=== PATIENT | male | born 1955 | race Caucasian/White ===

== ENCOUNTER 2017-04-29 09:46 | Observation (INO) | payer BC ==
--- NOTE | ~2017-04-29 | HP ---
History And Physical [id number] [place]. [address] NAME: MAY DSOUZA : 51 STATUS : DIS Phong PAT#: [id number] AGE: 61 ADM/REG DATE : 04/29/17 MR#: [id number] REPORT SERV DATE: 04/30/17 DICTATED BY: Cookie ISBELL DATE: 04/30/17 REPORT STATUS : Draft TRANSCRIBED BY: MODL DATE: 04/30/17 DATE OF ADMISSION: 04/29/2017 CHIEF COMPLAINT: Right proximal ureteral stone with intractable pain. HISTORY OF PRESENT ILLNESS: Mr. Dsouza is a 61-year-old white male with a history of stone disease, not last seen by me in several years, who presented to the emergency room with severe right flank pain for several days. A CT scan showed a 6 mm right proximal ureteral stone as well as an indeterminate but suspicious right renal mass. He was admitted for pain control. No evidence of fever or chills. He had some nausea but no vomiting. He was hypertensive at 150/89 but afebrile. PAST MEDICAL HISTORY: Hypertension, type 2 diabetes, urolithiasis, and hypercholesterolemia. PAST SURGICAL HISTORY: Previous ESWL in the indeterminate past. HOME MEDICATIONS: Daily aspirin, glimepiride 1 mg, hydrocodone acetaminophen 10/325, Avapro 300 mg daily, Zocor 20 mg daily, and Janumet 100/1000 daily. ALLERGIES: NO KNOWN DRUG ALLERGIES. FAMILY HISTORY: Negative for urologic disease. SOCIAL HISTORY: The patient denies use of alcohol, tobacco, or drugs. He lives at home with his . REVIEW OF SYSTEMS: Full 12-point review of systems is negative except as noted above. PHYSICAL EXAMINATION: CONSTITUTIONAL: The patient appears uncomfortable, afebrile with normal vital signs. HEENT EXAM: Normocephalic, atraumatic. RESPIRATORY EXAM: No respiratory distress. CV: Exam shows regular heart rhythm. No peripheral edema noted. GI: Abdominal exam, no tenderness or masses noted. EXAM: No evidence of CVA tenderness. MUSCULOSKELETAL: The patient is ambulatory. NEUROLOGIC EXAM: Shows no evidence of neurologic deficits. The patient is alert and oriented x3. PERTINENT LABORATORY: Creatinine 1.18, hemoglobin 14.6. White count 12,700. Urinalysis shows 77 red cells, 2 white cells, and rare bacteria; leukocyte esterase and nitrite negative. IMPRESSION: 1. History of urolithiasis. 2. 6 mm right proximal ureteral stone with intractable pain. History And Physical [address] [address] NAME: MAY DSOUZA : 51 STATUS : DIS Phong PAT#: [id number] AGE: 61 ADM/REG DATE : 04/29/17 MR#: [id number] REPORT SERV DATE: 04/30/17 DICTATED BY: Cookie ISBELL DATE: 04/30/17 REPORT STATUS : Draft TRANSCRIBED BY: HESHAM DATE: 04/30/17 3. Indeterminate right renal mass, suspicious. PLAN: 1. We will admit Mr. Dsouza for pain control. We will plan to keep him n.p.o. after midnight and proceed with stent placement tomorrow. Certainly he is not a candidate for ESWL in this shape plus the fact that he has been on aspirin, and I would be wary of proceeding with ureteroscopy while he is on his aspirin for this proximal stone. 2. We will get a [address] at some point and proceed with appropriate management of his renal mass, probably it is best to get rid of the stone before intervention is considered. All of this has been discussed with the patient who has no unanswered questions. We will plan to proceed with stent placement on 04/30/2017. DEAN/HESHMA Cookie Isbell M.D. / [id number] CC: Radha Raymundo M.D.
--- NOTE | ~2017-04-29 | OP ---
Record Of Operation [facility] [address] [place]. [address] NAME: MAY DSOUZA : 51 STATUS : DIS Phong PAT#: [id number] AGE: 61 ADM/REG DATE : 04/29/17 MR#: [id number] REPORT SERV DATE: 04/30/17 DICTATED BY: Cookie ISBELL DATE: 04/30/17 REPORT STATUS : Draft TRANSCRIBED BY: MODL DATE: 04/30/17 DATE OF PROCEDURE: 04/30/2017 PREOPERATIVE DIAGNOSIS: Right proximal ureteral stone, 6 mm with intractable pain. POSTOPERATIVE DIAGNOSIS: Right proximal ureteral stone, 6 mm with intractable pain. PROCEDURE: Cystoscopy, right retrograde pyelography, stone manipulation, and double-J stent placement. ANESTHESIA: General with LMA. COMPLICATIONS: None. DRAINS: 7-Bolivian x 24 cm Contour double-J stent. BRIEF HISTORY: Mr. Dsouza is a 61-year-old white male, admitted with intractable right flank pain. He had a 6 mm proximal stone. He has a history of urolithiasis. It was also noted on the scan that he had a mass in his right kidney. He was brought to the OR for stent placement and delayed stone therapy. The risks of bleeding, infection, anesthesia, injury to adjacent organs, inability to access stone, need for additional procedures were all discussed. There were no unanswered questions. DESCRIPTION OF PROCEDURE: Under excellent general anesthesia, the patient was prepped and draped in standard lithotomy position. Cystoscopy was performed with the 30-degree lens, revealed a normal anterior urethra. The posterior urethra showed some lateral lobe BPH with a slightly enlarged median lobe. Inspection of the bladder revealed no tumors, stones, or foreign bodies with normal orifices. An 8-Bolivian cone-tipped catheter was used to perform a right retrograde pyelogram. It showed a normal contour ureter until his proximal ureter filling defect consistent with known stone was noted. Proximal to that, there was ureteral pyelocaliectasis. Placed an angled glidewire through a 5-Bolivian open-ended catheter past the stone into the collecting system. I then placed a 7-Bolivian x 24 cm Contour double-J stent which coiled nicely in the renal pelvis and bladder. It appeared that the stone moved proximally during this procedure. I plan to send the patient to PACU with further instructions as below: DISCHARGE INSTRUCTIONS: 1. Home today if awakens from anesthesia. 2. We will plan a 4-phase CT and KUB as an outpatient with plans to follow up after with me to discuss his renal mass and his stone. We will consider ESWL versus endoscopy for further stone management. 3. Medications: Dilaudid 4 mg, 1 p.o. q.4 hours p.r.n. pain, #20 and Pyridium 200 mg one p.o. t.i.d. p.r.n. bladder pain, #15 with three refills. Record Of Operation [facility] [id number] [facility] [place]. [address] NAME: MAY DSOUZA : 51 STATUS : DIS Phong PAT#: [id number] AGE: 61 ADM/REG DATE : 04/29/17 MR#: [id number] REPORT SERV DATE: 04/30/17 DICTATED BY: Cookie ISBELL DATE: 04/30/17 REPORT STATUS : Draft TRANSCRIBED BY: HESHAM DATE: 04/30/17 DEAN/HESHAM Cookie Isbell M.D. / [id number] CC: Radha Raymundo M.D.
[2017-04-29 09:42] LABS: BASOPHILS 0.1 %; BASOPHILS ABSOLUTE 0.01 10/3/uL (0.0-0.16); EOSINOPHILS 0.4 %; EOSINOPHILS ABSOLUTE 0.05 10/3/uL (0.0-0.53); HEMATOCRIT 44.1 % (40.0-51.0); HEMOGLOBIN 14.6 g/dL (13.6-17.8); IMMATURE GRANULOCYTES 0.2 %; IMMATURE GRANULOCYTES ABSOLUTE 0.02 10/3/uL (0.0-0.11); LYMPHOCYTES 7.9 %; MANUAL DIFF NO %; MEAN CORPUS HGB CONC 33.1 g/dL (32.0-36.0); MEAN CORPUSCULAR HEMOGLOB 29.9 pg (26.0-34.0); MEAN CORPUSCULAR VOLUME 90.2 fL (80-100); MEAN PLATELET VOLUME 10.5 fL (9.2-13.0); MONOCYTES 10.6 %; MONOCYTES ABSOLUTE 1.35 10/3/uL (0.21-1.20); NEUTROPHILS 80.8 %; NEUTROPHILS ABSOLUTE 10.28 10/3/uL (2.02-8.40); PLATELET COUNT 270 10/3/uL (150-400); RBC DISTRIBUTION WIDTH 14.4 % (12.0-16.0); RED CELL COUNT 4.89 10/6/uL (4.7-6.1); WHITE BLOOD CELLS 12.7 10/3/uL (4.5-10.5)
[2017-04-29 10:02] LABS: BUN (BLOOD UREA NITROGEN) 13 MG/DL (6-23); CALCIUM, SERUM 8.9 MG/DL (8.5-10.4); CHLORIDE, SERUM 106 MMOL/L (96-112); CO2 (CARBON DIOXIDE) 25 MMOL/L (24-34); CREATININE 1.18 MG/DL (0.70-1.30); GFR AFRICAN AMERICAN 76 ML/MIN (>=60); GFR NON AFRICAN AMERICAN 65 ML/MIN (>=60); GLUCOSE, SERUM 160 MG/DL (60-99); POTASSIUM, SERUM 3.7 MMOL/L (3.5-5.3); SODIUM, SERUM 138 MMOL/L (135-148)
[2017-04-29 10:55] LABS: ASCORBIC ACID (UR NOT ORDER) NEG (NEG); BILIRUBIN, URINE NEGATIVE (NEG); ER URINALYSIS TAT 0 Hrs 11 Mins; KETONE, URINE TRACE MG/DL (NEG); LEUKOCYTE ESTERASE(NOT OR NEG (NEG); NITRITE (URINE) NEG (NEG); WBC (NOT ORDERED) (RFLEX) 2 (0-5)
[2017-04-29] MEDS ORDERED: NORCO1 TAB PO (11:14)
[2017-04-29] MEDS ORDERED: AMARYL1 MG PO (11:15)
[2017-04-29] MEDS ORDERED: JANUMET XR 1001 EACH PO (11:15)
[2017-04-29] MEDS ORDERED: ASAB PO (11:15)
[2017-04-29] MEDS ORDERED: ZOCOR20 PO (11:15)
[2017-04-29] MEDS ORDERED: AVAPRO300 MG PO (11:20)
[2017-04-30] MEDS ORDERED: PYR200 PO (18:00)
[2017-04-30] MEDS ORDERED: DIL4TAB PO (18:01)
[2017-06-12] MEDS ORDERED: BENICAR HCT1 TA1 PO (11:42)
[2017-06-18] MEDS ORDERED: PCET PO (07:33)
[2017-06-18] MEDS ORDERED: DSS PO (07:33)
== END 2017-04-30 18:49 | disposition home or self-care (01) ==
LOC: ER 09:46 → 6NO 14:10
PROVIDERS: Physician Assistant
PROC: BT1DZZZ Fluoroscopy of Right Kidney, Ureter and Bladder (ICD-10-PCS; 2017-04-30)
PROC: 0T768DZ Dilation of Right Ureter with Intraluminal Device, Via Natural or Artificial Opening Endoscopic (ICD-10-PCS; principal; 2017-04-30 13:30)
DX: N13.2 Hydronephrosis with renal and ureteral calculous obstruction (principal); N40.0 Benign prostatic hyperplasia without lower urinary tract symptoms; I10 Essential (primary) hypertension; E11.9 Type 2 diabetes mellitus without complications; E78.00 Pure hypercholesterolemia, unspecified; Z79.82 Long term (current) use of aspirin; Z79.899 Other long term (current) drug therapy; Z98.890 Other specified postprocedural states
CPT/HCPCS: 74000; 74176; 74420; 80048; 81001; 82962; 85025; 96374; 96375; 96376; 99285; A9270-GY; C1758; C1769; C1874; G0378; J1170; J2250; J2405; J3010; Q9967

== ENCOUNTER 2017-05-07 12:10 | Day surgery (SDC) | payer BC ==
--- NOTE | ~2017-05-07 | OP ---
Record Of Operation [facility] [address] [place]. [address] NAME: MAY DSOUZA : 51 STATUS : [facility]#: [id number] AGE: 61 ADM/REG DATE : 05/07/17 MR#: [id number] REPORT SERV DATE: 05/08/17 DICTATED BY: Cookie ISBELL DATE: 05/07/17 REPORT STATUS : Draft TRANSCRIBED BY: MODL DATE: 05/07/17 DATE OF PROCEDURE: 05/07/2017 PREOPERATIVE DIAGNOSIS: Symptomatic right renal stone. POSTOPERATIVE DIAGNOSIS: Symptomatic right renal stone. PROCEDURE: Cystoscopy, removal of double-J stent, right retrograde pyelography, ureteral dilation, rigid and flexible ureteroscopy, laser lithotripsy, basket stone extraction, double-J stent placement. SURGEON: Cooike Isbell M.D. ANESTHESIA: General endotracheal. COMPLICATIONS: None. DRAINS: 7-Angolan x 24 cm Contour double-J stent. BRIEF HISTORY: Mr. Dsouza is a 61-year-old white male who presented with severe right flank pain on 04/29/2017. He was admitted for pain control, and a CT scan showed a 6 mm right proximal ureteral stone as well as an exophytic right renal mass. He had a stent placed on 04/30 and subsequent to that, had a CT scan of the abdomen and pelvis with and without IV contrast. It showed a 3.8 x 3.4 x 4 cm exophytic right mid pole renal mass suspicious for right renal cell carcinoma. The stone was moved into the kidney, and I felt that ESWL would be at some risk given this tumor, so we decided to proceed with endoscopic management. The risks of bleeding, infection, anesthesia, injury to adjacent organs, need for continued stent postoperatively, etc., were discussed. There were no unanswered questions. DESCRIPTION OF PROCEDURE: Under excellent general anesthesia, the patient was prepped and draped in standard lithotomy position. Cystoscopy was performed with a 30-degree lens, revealed quite a bit of debris in the bladder with a stent emanating from the right orifice. It was removed with flexible grasper. Fluoroscopy showed the stone had moved into the proximal ureter. I inserted an angled glidewire through a 5-Angolan open-ended catheter and then decided to try the rigid scope since the stone had moved somewhat distally. I was able to access the stone and started treating it with a 200 micron fiber. It was quite a hard stone, and after about 10 minutes of treatment, it moved back into the kidney. I left the wire in place, placed a 9/11 ureteral access sheath up to the proximal ureter and then over the wire, placed a flexible ureteroscope. I was able to access the stone and treated with a 200 micron laser fiber until it was in either extractable or passable pieces. I pulled 1 piece into the basket and long-term down the ureter could not bring it to the sheath, so I returned the stone to the kidney. Further fragmentation yielded smaller fragments, and I could not see anything fluoroscopically. The collecting system was dilutely opacified, and I retrofitted the wire into the cystoscope. I placed a 7-Angolan x 24 cm Contour double-J stent which coiled nicely in the renal pelvis and bladder. As I was deciding whether or not to leave the string on the stent, I noticed a small amount of medial extravasation. The Record Of Operation [facility] [id number] [facility] [place]. [address] NAME: MAY DSOUZA : 51 STATUS : [facility] PAT#: [id number] AGE: 61 ADM/REG DATE : 05/07/17 MR#: [id number] REPORT SERV DATE: 05/08/17 DICTATED BY: Cookie ISBELL DATE: 05/07/17 REPORT STATUS : Draft TRANSCRIBED BY: HESHAM DATE: 05/07/17 stent appeared to be in good position, but I opted to remove the string and leave the stent in for at least a week or so to let things heal. I plan to discharge Mr. Dsouza as an outpatient with the following instructions. DISCHARGE INSTRUCTIONS: 1. Home today. 2. Follow up in my office next week, Saturday or later for cysto stent removal. This can also be scheduled in the OR if he prefers. He has been a little bit indolent about that. Would like to get a KUB that day to be sure that there are no significant stone fragments and then depending upon his postoperative course, get him to see Dr. Gomez for a planned laparoscopic partial nephrectomy. DEAN/HESHAM Cookie Isbell M.D. / [id number] CC: Dimitry Redman M.D.
[~2017-05-07 12:10] MED LIST: AMARYL1 MG PO; ASAB PO; AVAPRO300 MG PO; DIL4TAB PO; JANUMET XR 1001 EACH PO; NORCO1 TAB PO; PYR200 PO; ZOCOR20 PO
[2017-06-12] MEDS ORDERED: BENICAR HCT1 TA1 PO (11:42)
[2017-06-18] MEDS ORDERED: DSS PO (07:33)
[2017-06-18] MEDS ORDERED: PCET PO (07:33)
== END 2017-05-07 18:00 | disposition home or self-care (01) ==
LOC: SDC 12:10
PROC: 0T768DZ Dilation of Right Ureter with Intraluminal Device, Via Natural or Artificial Opening Endoscopic (ICD-10-PCS; 2017-05-07)
PROC: 0TF38ZZ Fragmentation in Right Kidney Pelvis, Via Natural or Artificial Opening Endoscopic (ICD-10-PCS; principal; 2017-05-07 14:00)
DX: N20.0 Calculus of kidney (principal); N28.89 Other specified disorders of kidney and ureter; I10 Essential (primary) hypertension; E78.5 Hyperlipidemia, unspecified; E11.9 Type 2 diabetes mellitus without complications; Z90.49 Acquired absence of other specified parts of digestive tract; Z79.899 Other long term (current) drug therapy; Z98.890 Other specified postprocedural states
CPT/HCPCS: 74420; 82962; 93005; A9270-GY; C1758; C1769; C1874; C1894; J2250; J2405; J2710; J3010; Q9967